=== PATIENT | female | born 1955 | race African-American/Black ===

== ENCOUNTER 2018-12-06 14:53 | Emergency (ER) | payer OTHER ==
[2018-12-06 15:13] VITALS: BP 158/90; PULSE 84; TEMP 98.4; BMI 32.4
--- NOTE | 2018-12-06 15:14 | PDOC ---
Rapid Medical Evaluation Chief Complaint: Chronic pain Medical Evaluation: Allergies Allergy/AdvReac Type Severity Reaction Status Date / Time No Known Allergies Allergy Verified 05/15/15 11:43 12/06/18 15:10 I have performed a brief in-person evaluation of this patient. The patient presents with a chief complaint of:back/ neck / shoulder pain bilateral x 1 month- no relief with muscle relaxant Pertinent physical exam findings: well appearing. I have ordered the following: EKG The patient will proceed to the ED for further evaluation. 12/06/18 15:12 Discharge Disposition - Referrals Referrals: Roman Cabrera MD [Primary Care Provider] - - Patient Instructions - Post Discharge Activity
--- NOTE | 2018-12-06 16:21 | PDOC ---
History of Present Illness - General Chief Complaint: Chronic pain Stated Complaint: Pain Time Seen by Provider: 12/06/18 15:48 History Source: Patient Exam Limitations: No Limitations - History of Present Illness Initial Comments: 12/06/18 16:20 The patient is a 63 yo F with a history of HTN, mild COPD and chronic neck pain , who presents to ED after a PCP visit due to uncontrolled HTN and abnormal EKG. patient states that she took her usual losartan-hctz and norvasc 5 this morning but measured BP at home 178/110. She took an extra norvasc 5 at home totalilng 10 mg. she saw PCP today and BP was still 173/110. EKG done in the office was NS [address] evelations in leac V1 and V3. HEr only symptoms included chronic neck pain. She was instructed to go to ED. In ED her BP is 158/ 90. She denies cp, palpitations, change in vision, h/a, dizziness, sob. She complains of worsening chronic neck pain radiating to b/l shoulders that persists despite muscle relaxant use. she reports recent unremarkable lumbar xr. Denies trouble swallowing, arm weakness, numbness or tingling. 12/06/18 16:35 12/06/18 16:44 12/06/18 16:48 12/06/18 16:55 12/06/18 16:58 Past History - Past Medical History Allergies/Adverse Reactions: Allergies Allergy/AdvReac Type Severity Reaction Status Date / Time No Known Allergies Allergy Verified 05/15/15 11:43 Home Medications: Ambulatory Orders Amlodipine Besylate [Norvasc -] 10 mg PO DAILY 05/15/15 Losartan Potassium [Cozaar] 50 mg PO DAILY 05/15/15 COPD: Yes HTN: Yes - Suicide/Smoking/Psychosocial Hx Smoking History: Smoker current status UNK Have you smoked in the past 12 months: No Number of Cigarettes Smoked Daily: 4 Information on smoking cessation initiated: No Hx Alcohol Use: No Drug/Substance Use Hx: No Substance Use Type: Alcohol Review of Systems - Review of Systems Constitutional: No: Chills, Diaphoresis, Fever, Weakness HEENTM: No: Difficulty Swallowing Respiratory: No: Shortness of Breath, SOB with Exertion Cardiac (ROS): No: Chest Pain, Edema, Lightheadedness, Palpitations, Syncope ABD/GI: No: Constipated, Diarrhea, Nausea, Vomiting, Abdominal cramping : No: Dysuria Neurological: No: Headache, Numbness, Paresthesia, Tingling, Weakness *Physical Exam - Vital Signs Last Vital Signs Temp Pulse Resp BP Pulse Ox 98.4 F 84 20 158/90 98 12/06/18 15:09 12/06/18 15:09 12/06/18 15:09 12/06/18 15:09 12/06/18 15:09 - Physical Exam General Appearance: Yes: Nourished HEENT: positive: EOMI, VIVEK, Normal Voice, Symmetrical Neck: positive: Trachea midline, Normal Thyroid, Supple, Decreased range of motion (slight limitation in active ROM with L neck rotation ). negative: Tender Respiratory/Chest: positive: Lungs Clear, Normal Breath Sounds. negative: Respiratory Distress Cardiovascular: positive: Regular Rhythm, Regular Rate, S1, S2. negative: JVD, Murmur Gastrointestinal/Abdominal: positive: Normal Bowel Sounds, Soft. negative: Tender, Organomegaly, Tenderness Integumentary: positive: Dry, Warm Neurologic: positive: drywall installer II-XII NML intact, Alert, Normal Mood/Affect. negative: Numbness, Sensory Deficit Moderate Sedation - Procedure Monitoring Vital Signs: Procedure Monitoring Vital Signs Temperature 98.4 F 12/06/18 15:09 Pulse Rate 84 12/06/18 15:09 Respiratory Rate 20 12/06/18 15:09 Blood Pressure 158/90 12/06/18 15:09 O2 Sat by Pulse Oximetry (%) 98 12/06/18 15:09 Heart Score/ECG Review - History History: Slightly suspicious - Electrocardiogram EKG: Non specific repolarization disturbance - Age Age: 45-65 - Risk Factors Risk Factors Heart Score: Yes Hx Hypertension, Yes Smoking History Based on the list above the patient has:: 1-2 risk factors - Troponin Troponin: </= normal limit - Score Heart Score - Total: 3 - ECG Intrepretation Rhythm: Regular Rhythm - ST and T Early Repolarization: No Non Specific ST-T Wave changes: Yes - ECG Impressions Normal ECG: Yes Comment:: 12/06/18 16:59 EKG NS 74, Q waves in anterior leads, t flattening in inferolateral leads. so st elevations or depressions ED Treatment Course - LABORATORY CBC & Chemistry Diagram: 12/06/18 17:00 12/06/18 17:00 - ADDITIONAL ORDERS Additional order review: 12/06/18 19:02 patients blood work is unremarkable. trop is negative, ckMB negative. EKG unremearkable for acs or strain. would refer patient for further BP management outpatient. In office EKG was likley abnormal due to lead placement (it is atypical to have st elevation in v1 and v3 but not in V2). 12/06/18 19:03 - RADIOLOGY Chest X-Ray Result: No Infiltrates (unfolded aorta, no cardiomegaly, no mediastinal widening) *DC/Admit/Observation/Transfer Diagnosis at time of Disposition: Hypertension - Discharge Dispostion Disposition: HOME Condition at time of disposition: Good Decision to Admit order: No - Referrals Referrals: Roman Cabrera MD [Primary Care Provider] - - Patient Instructions Additional Instructions: You were in ER for evaluation of an abnormal EKG done in the office. The EKG and blood work here were not indicative of an acute cardiac issue. Your blood pressure is still elevated but not an emergency and needs to be managed with your primary doctor. Please follow up with your primary doctor later this week for medication adjustment. If chest pain, shortness of breath or dizziness occur , please come back to ED immediately. - Post Discharge Activity Forms/Work/School Notes: Back to Work
--- NOTE | 2018-12-06 16:57 | PDOC ---
Attending Attestation - Resident Resident Name: Lori Mota - ED Attending Attestation I have performed the following: I have examined & evaluated the patient, The case was reviewed & discussed with the resident, I agree w/resident's findings & plan, Exceptions are as noted - HPI HPI: 12/06/18 17:12 63 yo female with HTN [facility] and he did an ekg that showed st elevations in V4,V5,V6. She said that she has chronic neck and back pain and sciatica but thsi morning she had pain in her neck that was significant, it is better now. She denies substernal chest pain or dyspnea
[2018-12-06 17:25] LABS: BASO % 0.5 % (0-2.0); HEMATOCRIT 41.8 % (32.4-45.2); HEMOGLOBIN 14.3 GM/dL (10.7-15.3); LYMPH % 34.3 % (8-40); MCH 28.9 pg (25.7-33.7); MCHC 34.3 g/dl (32.0-36.0); MEAN CELL VOLUME 84.1 fl (80-96); MEAN PLT VOLUME 8.7 fl (7.5-11.1); MONO % 9.5 % (3.8-10.2); NEUT % 54.7 % (42.8-82.8); PLATELET COUNT 194 K/MM3 (134-434); RBC 4.97 M/mm3 (3.60-5.2); RDW 13.2 % (11.6-15.6); WHITE BLOOD COUNT 7.4 K/mm3 (4.0-10.0)
--- NOTE | 2018-12-06 17:31 | PDOC ---
Attending Attestation - Resident Resident Name: Lori Mota - ED Attending Attestation I have performed the following: I have examined & evaluated the patient, The case was reviewed & discussed with the resident, I agree w/resident's findings & plan, Exceptions are as noted - HPI HPI: 12/06/18 17:29 63 yo female referred to ED by Dr Hussain Cabrera at [address] [place] [id number] for abnormal ekg changes She has chronic back ,leg and neck pain and today the neck increased.The ekg in his office showed elevated ST but her ekg in the ED did not show any ischemia 12/06/18 18:28 - Physicial Exam PE: 12/06/18 18:32 Well-nourished, well-developed 63-year-old female presents because of acute and chronic pain. Head normocephalic, atraumatic. Neck supple, no JVD supple Lungs are clear to auscultation bilaterally CVS regular rate and rhythm S1, S2 Abdomen soft, nontender. Extremities no pitting edema. Musculoskeletal no paraspinal back pain ,no cva tenderness Skin warm and dry. Neuro alert and oriented 3, ambulatory, no gross focal neural deficits Psych appropriate - Medical Decision Making 12/06/18 18:34 trop is negative <Kerri Koch - Last Filed: 12/06/18 18:34> - HPI HPI: The patient is a 63 year old female with PMHx of HTN, COPD and chronic neck pain , who was referred to the ED by her Dr. Roman Cabrera for elevated blood pressure 178/110 despite taking her using medication (losartan and norvasc). She saw her PCP tpday who told her to take a double dose of Norvasc. EKG done in PCP office showed ST elevations in lead V1 and V3. In ED her BP is 158/90. She also endorses her chronic neck pain and that radiates to her b/l shoulders and lower back pain. She was given muscle relaxants by her PCP but the pain persists. She denies chest pain, palpitations, changes in vision, headache, dizziness, shortness of breath. Denies any numbness & tingling or weakness. <Edda Watkins - Last Filed: 12/06/18 19:28>
[2018-12-06 18:18] LABS: ALBUMIN 3.7 g/dl (3.4-5.0); ALK PHOS 79 U/L (45-117); ANION GAP 7 MMOL/L (8-16); BILIRUBIN,TOTAL 0.2 mg/dL (0.2-1); BLOOD UREA NITROGEN 14 mg/dL (7-18); CALCIUM 9.3 mg/dL (8.5-10.1); CHLORIDE 104 mmol/L (98-107); CO2 30 mmol/L (21-32); CREATININE 0.9 mg/dL (0.55-1.3); GLUCOSE,RANDOM 100 mg/dL (74-106); MAGNESIUM 2.1 mg/dL (1.8-2.4); POTASSIUM 3.6 mmol/L (3.5-5.1); SGOT/AST 19 U/L (15-37); SGPT/ALT 32 U/L (13-61); SODIUM 141 mmol/L (136-145)
--- NOTE | 2018-12-07 18:15 | EKG ---
Test Reason : Blood Pressure : / mmHG Vent. Rate : 074 BPM Atrial Rate : 074 BPM P-R Int : 150 ms QRS Dur : 078 ms QT Int : 384 ms P-R-T Axes : 047 006 004 degrees QTc Int : 426 ms NORMAL SINUS RHYTHM WITH SINUS ARRHYTHMIA POSSIBLE LEFT ATRIAL ENLARGEMENT BORDERLINE ECG Confirmed by MD ANSLEY, MELANIE ([id number]) on 12/07/2018 6:15:50 PM Referred By: Confirmed By:MELANIE PANCHAL MD
== END 2018-12-06 19:29 | disposition home or self-care (01) ==
LOC: JER 14:53
DX: M54.2 Cervicalgia (principal); G89.29 Other chronic pain; I10 Essential (primary) hypertension; J44.9 Chronic obstructive pulmonary disease, unspecified
CPT/HCPCS: 36415; 71045-TC-FY; 80053; 82550; 82553; 83735; 84484; 85025; 93005; 93010; 99283-25